=== PATIENT | female | born 1940 | race Caucasian/White ===

== ENCOUNTER 2023-12-16 16:00 | Inpatient (IN) | payer MEDICARE ==
[~2023-12-16] VITALS: Ht 157.5 cm; Wt 82.6 kg
[2023-12-16 11:41] LABS: BASOPHILS # (AUTO) 0.06 K/uL (0.00-0.20); BASOPHILS % (AUTO) 1.2 % (0.0-5.0); EOSINOPHILS # (AUTO) 0.09 K/uL (0.00-0.70); EOSINOPHILS % (AUTO) 1.7 % (0.0-8.0); IMMATURE GRANULOCYTE ABSOLUTE 0.02 K/uL (0-1); LYMPHOCYTES # (AUTO) 0.9 K/uL (1.0-4.8); LYMPHOCYTES % (AUTO) 16.4 % (21.0-51.0); MEAN CORPUSCULAR HEMOGLOBIN 31.8 pg (27.0-33.0); MEAN CORPUSCULAR HGB CONC 32.8 g/dL (32.0-36.0); MEAN CORPUSCULAR VOLUME 96.8 fL (79-99); MONOCYTES # (AUTO) 0.5 K/uL (0.1-1.0); MONOCYTES % (AUTO) 8.7 % (3.0-13.0); NEUTROPHILS # (AUTO) 3.7 K/uL (1.8-7.7); NEUTROPHILS % (AUTO) 71.6 % (40.0-77.0); PLATELET COUNT (AUTO) 259 K/uL (130-400); RED BLOOD CELL COUNT(AUTO) 4.44 MIL/uL (4.00-5.50); RED CELL DISTRIBUTION WIDTH 14.6 % (11.0-15.5); WHITE BLOOD COUNT (AUTO) 5.2 K/uL (4.8-10.8)
[2023-12-16 11:50] LABS: APPEARANCE,URINE CLEAR (CLEAR); BILIRUBIN,URINE NEGATIVE (NEGATIVE); COLOR,URINE YELLOW (YELLOW); GLUCOSE, URINE (UA) NEGATIVE (NEGATIVE); KETONES,URINE 10 mg/dL (NEGATIVE); LEUKOCYTE ESTERASE ,URINE 25 Leu/uL (NEGATIVE); NITRATE,URINE NEGATIVE (NEGATIVE); OCCULT BLOOD,URINE NEGATIVE (NEGATIVE); PROTEIN,URINE 20 mg/dL (NEGATIVE)
[2023-12-16 11:50] LABS: INR 0.94 (0.85-1.15); PROTHROMBIN TIME 11.1 SEC (9.6-11.6)
[2023-12-16 11:52] LABS: PARTIAL THROMBOPLASTIN TIME 24.2 SEC (26.3-35.5)
[2023-12-16 11:57] VITALS: BP 176/70; PULSE 98; RESP 19
[2023-12-16 12:02] LABS: ADD UA MICROSCOPIC YES
[2023-12-16 12:10] LABS: MUCUS,URINE RARE LPF (None Seen); OTHER CASTS, URINE 2 /LPF (None Seen); SQUAMOUS EPITHELIAL CELL,UR RARE /HPF (0-2)
[~2023-12-16 16:00] MED LIST: ASCO100031 PO; ATOR10TA69 PO; CYAN1TAB19 PO; LEVO100 PO; VIT1CAPS28 PO; VITAMIN E PO
[2023-12-20] MEDS ORDERED: FAMO40TA7 PO (18:11)
[2023-12-20] MEDS ORDERED: VIT1TAB.18 PO (18:11)
[2023-12-20] MEDS ORDERED: MV-M1TAB20 PO (18:11)
[2023-12-20] MEDS ORDERED: VIVISCAL PO (18:11)
[2023-12-20] MEDS ORDERED: TOTAL BEETS PO (18:11)
[2023-12-20] MEDS ORDERED: AEC81 PO (18:11)
[2023-12-20] MEDS ORDERED: CALC625T66 PO (18:11)
[2023-12-20] MEDS ORDERED: NAPR220C15 PO (18:11)
[2023-12-20] MEDS ORDERED: MULT-952 PO (18:11)
[2023-12-20] MEDS ORDERED: FOLI1 PO (18:11)
[2023-12-22] VITALS (30 sets, daily range): BP systolic 111–172; BP diastolic 59–86; PULSE 57–85; RESP 15–18; O2SAT 94–100
[2023-12-22] MEDS ORDERED: ROCURONIUM BROMIDE 10MG/1ML 5ML VL ONE (06:54)
[2023-12-22] MEDS ORDERED: MIDAZOLAM HCL 1 MG/ML 2ML VIAL ONE (06:54)
[2023-12-22] MEDS ORDERED: FENTANYL CITRATE PF 50 MCG/1 ML 2ML VIAL ONE ×3 (06:54→11:29)
[2023-12-22] MEDS ORDERED: PROPOFOL 10 MG/ML 20ML VIAL IV ONE (06:54)
[2023-12-22] MEDS: CEFAZOLIN SODIUM 2 GM VIAL ONE ×2 (06:55→08:33)
[2023-12-22] MEDS: LACTATED RINGERS 1000ML 1,000 ML IV ONE (06:55)
[2023-12-22] MEDS ORDERED: ROPIVACAINE 0.5% 5MG/ML 30ML ONE (07:17)
[2023-12-22] MEDS ORDERED: LIDOCAINE 1%-EPI 1:100,000 20 ML VIAL ONE (07:17)
[2023-12-22] MEDS ORDERED: DEXAMETHASONE SOD PHOSPHATE 10MG/ML 1ML VIAL ONE (07:20)
[2023-12-22] MEDS ORDERED: PHENYLEPHRINE HCL 10 MG/ML 1ML VIAL IV ONE (07:22)
[2023-12-22] MEDS ORDERED: ONDANSETRON 4MG INJ ONE (07:24)
[2023-12-22] MEDS ORDERED: MORPHINE PF 100MG/10ML AMP IV ONE (07:47)
[2023-12-22] MEDS: VANCOMYCIN IV ONE (08:33)
[2023-12-22] MEDS: [UNRECOGNIZED DRUG - OTHER] IV ONE (08:33)
[2023-12-22] MEDS: TRANEXAMIC ACID 1000MG/10ML ONE (08:50)
[2023-12-22] MEDS ORDERED: TRANEXAMIC ACID 1000MG/10ML ONE (08:50)
[2023-12-22] MEDS ORDERED: GLYCOPYRROLATE 0.2 MG/ML 5 ML VIAL ONE (10:53)
[2023-12-22] MEDS ORDERED: NEOSTIGMINE METHYLSULFATE 1MG/ML IV ONE (10:53)
[2023-12-22] MEDS ORDERED: POTASSIUM CHLORIDE 20MEQ/100ML 100 ML IV PRN (11:30)
[2023-12-22] MEDS ORDERED: DiphenhydrAMINE HCL 50 MG/ML VIAL IVP PRN (11:30)
[2023-12-22] MEDS ORDERED: KCL 20 MEQ ERTAB PO PRN (11:30)
[2023-12-22] MEDS ORDERED: CEFAZOLIN SODIUM 2 GM VIAL IVPB SCH (11:30)
[2023-12-22] MEDS: ACETAMINOPHEN 500 MG TABLET PO SCH (11:30)
[2023-12-22] MEDS ORDERED: FERROUS FUMARATE 324 MG TABLET PO PRN (11:30)
[2023-12-22] MEDS ORDERED: ONDANSETRON 4MG INJ IVP PRN (11:30)
[2023-12-22] MEDS ORDERED: TRAMADOL HCL 50 MG TABLET PO PRN (11:30)
[2023-12-22] MEDS ORDERED: CALCIUM CARB 500MG PO PRN (11:30)
[2023-12-22] MEDS ORDERED: TEMAZEPAM 15 MG CAPSULE PO PRN (11:30)
[2023-12-22] MEDS ORDERED: OXYCODONE HCL 5 MG TAB PO PRN ×2 (11:30)
[2023-12-22] MEDS ORDERED: POTASSIUM CHLORIDE 10% ELIXIR 20 MEQ/15 ML UDCUP PO PRN (11:30)
[2023-12-22] MEDS: MORPHINE 2 MG SYG ONE (14:00)
[2023-12-22] MEDS: CEFAZOLIN SODIUM 1 GM VIAL ONE (14:00)
[2023-12-22] MEDS: 0.9%NACL 1000ML 1,000 ML IV SCH (14:30)
[2023-12-22] MEDS: CEFAZOLIN SODIUM 2 GM VIAL IVPB SCH (15:22)
[2023-12-22] MEDS: ATORVASTATIN 10 MG TABLET PO SCH (20:05)
[2023-12-22] MEDS: LEVOTHYROXINE 100 MCG TABLET PO SCH (20:05)
[2023-12-22] MEDS: ASPIRIN 81 MG EC TAB PO SCH (20:06)
[2023-12-22] MEDS: PRESERVISION LUTEIN PO SCH (20:08)
[2023-12-22] MEDS ORDERED: NON-FORMULARY MEDICATION 1 EACH (Famotidine 40 MG) PO SCH (21:00)
[2023-12-22] MEDS ORDERED: ASPIRIN 81 MG EC TAB PO SCH (21:00)
[2023-12-22] MEDS: FAMOTIDINE 20MG TAB PO SCH (21:23)
[2023-12-23] VITALS (8 sets, daily range): BP systolic 109–154; BP diastolic 46–80; PULSE 63–90; RESP 16–18; O2SAT 97–99
[2023-12-23 03:51] LABS: HEMATOCRIT 32.6 % (36-48); MEAN CORPUSCULAR HEMOGLOBIN 31.9 pg (27.0-33.0); MEAN CORPUSCULAR HGB CONC 33.1 g/dL (32.0-36.0); MEAN CORPUSCULAR VOLUME 96.2 fL (79-99); RED BLOOD CELL COUNT(AUTO) 3.39 MIL/uL (4.00-5.50); WHITE BLOOD COUNT (AUTO) 7.3 K/uL (4.8-10.8)
[2023-12-23 04:10] LABS: CREATININE 0.9 mg/dL (0.5-1.0)
[2023-12-23] MEDS: [UNRECOGNIZED DRUG - OTHER] PO SCH (08:35)
[2023-12-23] MEDS: VITAMIN D3 COMPLETE PO SCH (08:36)
[2023-12-23] MEDS: FOLIC ACID 1 MG TABLET PO SCH (08:37)
[2023-12-23] MEDS: POLYETHYLENE GLYCOL 3350 17 GM POWD.PACK PO SCH (08:37)
[2023-12-23] MEDS ORDERED: HYDR-4060 PO (17:37)
[2023-12-23] MEDS ORDERED: AEC81 PO (17:37)
[2023-12-24 04:00] VITALS: BP 131/71; PULSE 90; RESP 20
[2023-12-24 08:30] VITALS: BP 143/71; PULSE 93; RESP 18
[2023-12-24] MEDS: KETOROLAC 15MG/ML VIAL (15MG/ML) IV PRN (08:33)
[2023-12-24 12:00] VITALS: BP 148/73; PULSE 89; RESP 18
[2023-12-24 14:04] VITALS: O2SAT 96
[2023-12-25] MEDS ORDERED: BISACODYL 10 MG SUPP.RECT RC PRN (11:30)
== END 2023-12-24 13:30 | disposition home health service (06) | DRG 470 ==
LOC: DAHIP 12-22 05:48 → OBSVTOIN 12-22 05:48 → 4BH 12-22 12:55
PROVIDERS: ADMIT Orthopaedic Surgery; ATTEND Orthopaedic Surgery
PROC: 0SR9029 Replacement of Right Hip Joint with Metal on Polyethylene Synthetic Substitute, Cemented, Open Approach (ICD-10-PCS; principal; 2023-12-22 07:45)
DX: M16.11 Unilateral primary osteoarthritis, right hip (principal); E03.9 Hypothyroidism, unspecified; E78.5 Hyperlipidemia, unspecified; Z96.642 Presence of left artificial hip joint; G89.29 Other chronic pain; K21.9 Gastro-esophageal reflux disease without esophagitis; Z82.49 Family history of ischemic heart disease and other diseases of the circulatory system; Z87.891 Personal history of nicotine dependence
CPT/HCPCS: 36415; 73502; 80048; 81001; 85025; 85027; 85610; 85730; 87088; 87641; C1763; G0378; J0690; J1100; J1885; J2250; J2270; J2274; J2371; J2405; J2704; J2710; J2795; J3010; J3370; J3490; J7120; A4215; A4221; A4222; A4223; A4649; A4663; A4930; A9272; C1776